=== PATIENT | male | born 1985 | race Caucasian/White ===

== ENCOUNTER 2019-09-30 18:02 | Emergency (ER) | payer OTHER ==
[~2019-09-30] VITALS: Ht 172.7 cm; Wt 83.5 kg
[2019-09-30 18:21] VITALS: Ht 172.7 cm; Wt 83.5 kg
[2019-09-30 18:45] VITALS: BP 162/99
== END 2019-09-30 18:45 | disposition home or self-care (01) ==
LOC: ED 18:02
DX: K02.9 Dental caries, unspecified (principal); J45.909 Unspecified asthma, uncomplicated; I10 Essential (primary) hypertension

== ENCOUNTER 2019-11-10 15:39 | Emergency (ER) | payer OTHER ==
[~2019-11-10] VITALS: Ht 172.7 cm; Wt 83.0 kg
[2019-11-10 16:15] VITALS: Ht 172.7 cm; Wt 83.0 kg
[2019-11-10 18:00] VITALS: BP 150/93
== END 2019-11-10 18:00 | disposition home or self-care (01) ==
LOC: ED 15:39
DX: L03.116 Cellulitis of left lower limb (principal)